=== PATIENT | male | born 1975 | race Hispanic/Latino ===

== ENCOUNTER 2021-06-17 10:18 | Emergency (ER) | payer SELFPAY ==
[2021-06-17] MEDS ORDERED: HYDROcodone/ACETAMINOPHEN 5-325 MG TAB PO ONE (10:43)
[2021-06-17 10:45] VITALS: BP 144/95
--- NOTE | 2021-06-17 10:50 | Emergency Department Report ---
ED Animal Bite HPI - General Chief Complaint: Animal Bite Stated Complaint: DOG BITE Time Seen by Provider: 06/17/21 10:37 Source: EMS Mode of arrival: Stretcher Limitations: No Limitations - History of Present Illness Initial Comments: Patient presents by ambulance secondary to a dog bite. He was walking back from [facility]. He had groceries that he was carrying. He states that this happened sometime Thursday night into Thursday morning. He does not know exactly when. He states that he had not seen his dog before. There are multiple dogs that bit him. His pain is in the left calf area. He did fall. He did not hit his head. He is amazed that he "got away." He admits that he lost his groceries in the interim. He does not know why these dogs attacked him. He was just walking home. He did state that they were barking prior to him getting attacked. He states his last tetanus shot is up-to-date. Pain is constant and aching in the left calf and worse with any kind of movement or palpation. He reports that he is "not even had time to take a shower yet." He has not cleaned the wounds. - Related Data Previous Rx's Medication Instructions Recorded Last Taken Type Amoxicillin/Potassium Clav 1 each PO BID #14 tab 06/17/21 Unknown Rx [Augmentin 875-125 Tablet] Ibuprofen [Motrin] 800 mg PO Q8HR PRN #20 tablet 06/17/21 Unknown Rx Allergies Allergy/AdvReac Type Severity Reaction Status Date / Time No Known Allergies Allergy Unverified 06/17/21 10:29 ED Review of Systems ROS: Stated complaint: DOG BITE Other details as noted in HPI Comment: All other systems reviewed and negative Constitutional: denies: fever Eyes: denies: eye pain ENT: denies: throat pain Respiratory: denies: cough Cardiovascular: denies: chest pain Endocrine: denies: unexplained weight loss Gastrointestinal: denies: abdominal pain Genitourinary: denies: dysuria Musculoskeletal: denies: back pain Skin: denies: rash Neurological: denies: headache Hematological/Lymphatic: denies: easy bruising ED Past Medical Hx - Past Medical History Previous Medical History?: No - Family History Family history: no significant - Social History Smoking Status: Unknown if ever smoked Substance Use Type: None - Medications Home Medications: Home Medications Medication Instructions Recorded Confirmed Last Taken Type Amoxicillin/Potassium Clav 1 each PO BID #14 tab 06/17/21 Unknown Rx [Augmentin 875-125 Tablet] Ibuprofen [Motrin] 800 mg PO Q8HR PRN #20 tablet 06/17/21 Unknown Rx ED Physical Exam - General Limitations: No Limitations, Other (Pulse ox noted and normal) General appearance: alert, in no apparent distress, other (Unkempt) - Head Head exam: Present: atraumatic, normocephalic - Eye Eye exam: Present: normal appearance, PERRL, EOMI. Absent: scleral icterus - ENT ENT exam: Present: mucous membranes moist, normal external ear exam - Neck Neck exam: Present: normal inspection. Absent: meningismus - Respiratory Respiratory exam: Present: normal lung sounds bilaterally. Absent: respiratory distress - Cardiovascular Cardiovascular Exam: Present: normal rhythm, tachycardia - GI/Abdominal GI/Abdominal exam: Present: soft. Absent: tenderness - Extremities Exam Extremities exam: Present: normal capillary refill, calf tenderness (Left calf has multiple superficial wounds and even an occasional deep wound from a dog bite) - Back Exam Back exam: Present: full ROM - Neurological Exam Neurological exam: Present: alert, oriented X3, CN II-XII intact. Absent: motor sensory deficit - Psychiatric Psychiatric exam: Present: normal affect, normal mood - Skin Skin exam: Present: warm, dry, other (Patient has a 4 cm horizontal skin tear to the posterior left calf. There is a 4 cm horizontal tear of the skin to the left Achilles area. Achilles is intact.) ED Course Vital Signs 06/17/21 06/17/21 06/17/21 10:29 10:40 10:44 Temperature 97.9 F Pulse Rate 104 H 98 H Respiratory 16 16 Rate Blood Pressure 144/56 144/95 [Right] O2 Sat by Pulse 98 100 100 Oximetry - Reevaluation(s) Reevaluation #1: 06/17/21 10:50 EMS was met upon arrival Reevaluation #2: 06/17/21 11:56 Wounds were cleaned and dressed. Patient was discharged. Reevaluation #4: 06/17/21 11:56 Patient presented secondary to a dog bite. He has wounds to the left calf that are torn. There is some skin damage. Wounds are at least 1 to 2 days old. They were on cleaned. At this time, I believe the risk of infection is higher than is the benefit of suture repair. These wounds will be allowed to heal by secondary intent. Antibiotics have been started empirically to try to prevent infection as the patient had done a little wound care after the incident. Critical Care Time: No Critical care attestation.: If time is entered above; I have spent that time in minutes in the direct care of this critically ill patient, excluding procedure time. ED Disposition Clinical Impression: Dog bite of left lower leg Qualifiers: Encounter type: initial encounter Qualified Code(s): S81.852A - Open bite, left lower leg, initial encounter Disposition: HOME / SELF CARE / HOMELESS Is pt being admited?: No Condition: Stable Instructions: Animal Bite, Adult, [id number], Wound Care, Adult Additional Instructions: Keep the wounds clean. Use warm soapy water to wash them twice a day. Use N eosporin or bacitracin. Return for problems. Follow-up with a regular doctor for recheck Prescriptions: Amoxicillin/Potassium Clav [Augmentin 875-125 Tablet] 1 each PO BID #14 tab Ibuprofen [Motrin] 800 mg PO Q8HR PRN #20 tablet PRN Reason: Pain , Severe (7-10) Referrals: PRIMARY CARE, [Referring] - 3-5 Days KHANH CHRISTIAN MD [Staff Physician] - 3-5 Days
== END 2021-06-17 12:42 | disposition home or self-care (01) ==
LOC: ED 10:18
DX: S81.852A Open bite, left lower leg, initial encounter (principal); W54.0XXA Bitten by dog, initial encounter; Y93.89 Activity, other specified; Y92.89 Other specified places as the place of occurrence of the external cause; Y99.8 Other external cause status
CPT/HCPCS: 99283